=== PATIENT | female | born 1950 | race Caucasian/White ===

== ENCOUNTER 2019-12-02 13:39 | Emergency (ER) | payer MEDICARE, OTHER ==
[~2019-12-02] VITALS: Ht 167.6 cm; Wt 65.8 kg
[~2019-12-02 13:39] MED LIST: HUMALOG PE100 UNIT/M; LANTUSSOLASTAR; LISINOPRIL-HCT1 EACH; SYNTHROID125 MC1 PO
[2019-12-02] MEDS ORDERED: LEVEMIR FL100 UNIT/2 SUBQ (13:56)
[2019-12-02] MEDS ORDERED: LIPITOR10 MG PO (13:56)
[2019-12-02] MEDS ORDERED: GABAPENTIN100 MG PO (13:57)
[2019-12-02] MEDS ORDERED: PRINIVIL10 MG PO (13:57)
[2019-12-02 14:11] LABS: HEMATOCRIT 38.8 % (37.0-47.0); HEMOGLOBIN 13.4 gm/dL (12.0-15.0); MCH 31.2 pg (26.0-34.0); MCHC 34.5 g/dL (28.0-37.0); MCV 90.4 fL (80.0-100.0); MPV 8.5 fl. (7.2-11.1); RBC 4.29 mil/uL (4.20-5.00); RDW-CV 13.2 % (10.5-14.5); WBC 11.3 thou/uL (4.0-11.0)
[2019-12-02 14:19] LABS: CALCIUM 9.1 mg/dL (8.5-10.1); CREATININE 1.4 mg/dL (0.6-1.3)
[2019-12-02 14:22] LABS: POTASSIUM 2.8 mmol/L (3.5-5.1)
[2019-12-02 14:24] LABS: ALBUMIN 4.1 g/dL (3.4-5.0); TOTAL PROTEIN 7.1 g/dL (6.4-8.2)
[2019-12-02 14:47] VITALS: BP 125/56
--- NOTE | 2019-12-02 15:27 | EKG ---
[place] [address] ELECTROCARDIOGRAM REPORT Name: LUIS GOINSNY Abdullahi Room: [facility]#: [id number] Admission: 12/02/19 Attend Phys: Discharge: Date of : 50 Report #: [id number] THIS REPORT FOR: //name// [facility] ED Test Date: 2019-12-02 Test Time: 13:46:04 Pat Name: АНДРЕЙ GOINS Department: Room: Gender: F Fresh Work Inspector: JANA : 1950 Requested By: Satish Khoury Order Number: [id number] MD: Andres Kent Measurements Intervals [place] Rate: 89 P: 56 MI: 152 QRS: -12 QRSD: 79 T: 128 QT: 336 QTc: 409 Interpretive Statements Sinus rhythm poor r wave progression Probable left atrial enlargement Borderline repolarization abnormality Compared to ECG 12/26/2013 18:24:38 st depression noted Electronically Signed On 12-02-2019 15:26:41 HI LO DRIVER by Andres Kent [email or web address] <ELECTRONICALLY SIGNED> By: Andres Kent MD, [facility] 12/02/19 1526 1346 1346 Andres Kent MD, FACC /EPI
== END 2019-12-02 14:47 ==
LOC: M.ERS 13:39
PROVIDERS: Emergency Medicine
DX: E11.65 Type 2 diabetes mellitus with hyperglycemia (principal); E78.5 Hyperlipidemia, unspecified; Z88.0 Allergy status to penicillin; Z88.2 Allergy status to sulfonamides

== ENCOUNTER 2019-12-03 16:00 | Inpatient (IN) | payer MEDICARE, OTHER ==
[2019-12-03] VITALS (8 sets, daily range): BP systolic 73–111; BP diastolic 33–45
[~2019-12-03] VITALS: Ht 167.6 cm; Wt 67.6 kg
[~2019-12-03 16:00] MED LIST changes: +GABAPENTIN100 MG PO; +LEVEMIR FL100 UNIT/2 SUBQ; +LIPITOR10 MG PO; +PRINIVIL10 MG PO
[2019-12-03 16:27] LABS: HEMATOCRIT 42.9 % (37.0-47.0); HEMOGLOBIN 13.2 gm/dL (12.0-15.0); MCH 30.6 pg (26.0-34.0); MCHC 30.8 g/dL (28.0-37.0); MPV 8.8 fl. (7.2-11.1); NUCLEATED RBCS 0 /100WBC; PLATELET COUNT* 285 thou/uL (150-400); RBC 4.32 mil/uL (4.20-5.00); RDW-CV 14.4 % (10.5-14.5); WBC 18.2 thou/uL (4.0-11.0)
[2019-12-03 16:29] LABS: MCV 99.2 fL (80.0-100.0)
[2019-12-03 16:48] LABS: CALCIUM 9.7 mg/dL (8.5-10.1); CREATININE 1.7 mg/dL (0.6-1.3); POTASSIUM 5.6 mmol/L (3.5-5.1)
[2019-12-03 16:51] LABS: BE -20.1 mmol/L (-2 to +3); PO2 110.9 mmHg (75.0-100.0)
[2019-12-03 16:52] LABS: MAGNESIUM 1.8 mg/dL (1.8-2.4); TOTAL BILIRUBIN 1.1 mg/dL (<0.1-1.0); TOTAL PROTEIN 7.2 g/dL (6.4-8.2)
[2019-12-03 16:53] LABS: pH 7.172 (7.340-7.450)
[2019-12-03 16:54] LABS: PCO2 17.4 mmHg (35.0-45.0)
[2019-12-03 17:21] LABS: ABSOLUTE BASOPHILS 0.2 thou/uL (0.0-0.2); ABSOLUTE LYMPHOCYTES 1.5 thou/uL (0.8-5.3); ABSOLUTE MONOCYTES 1.1 thou/uL (0.0-1.2); ABSOLUTE NEUTROPHILS 15.5 thou/uL (1.6-8.1); PLATELET ESTIMATE ADEQUATE
[2019-12-03 19:49] LABS: CALCIUM 8.8 mg/dL (8.5-10.1); CREATININE 1.6 mg/dL (0.6-1.3); POTASSIUM 4.7 mmol/L (3.5-5.1)
[2019-12-03 20:55] LABS: URINE BILIRUBIN NEGATIVE (Negative); URINE BLOOD NEGATIVE (Negative); URINE CLARITY CLEAR; URINE COLOR YELLOW; URINE GLUCOSE-RANDOM 2+ (Negative); URINE LEUKOCYTES-REFLEX NEGATIVE (Negative); URINE NITRITE-REFLEX NEGATIVE (Negative); URINE PROTEIN NEGATIVE (Negative); URINE SPECIFIC GRAVITY 1.025 (1.005-1.030); URINE UROBILINOGEN 0.2 E.U./dl (0.2-1.0)
[2019-12-03 20:56] LABS: URINE KETONES 3+ (Negative)
[2019-12-03 22:53] LABS: CALCIUM 8.1 mg/dL (8.5-10.1); CREATININE 1.4 mg/dL (0.6-1.3); MAGNESIUM 1.4 mg/dL (1.8-2.4); PHOSPHORUS* 2.8 mg/dL (2.5-4.9); POTASSIUM 3.9 mmol/L (3.5-5.1)
[2019-12-04] VITALS (45 sets, daily range): BP systolic 77–123; BP diastolic 30–62
[2019-12-04 02:52] LABS: ABSOLUTE BASOPHILS 0.1 thou/uL (0.0-0.2); ABSOLUTE MONOCYTES 1.4 thou/uL (0.0-1.2); ABSOLUTE NEUTROPHILS 9.4 thou/uL (1.6-8.1); EOSINOPHILS 0.1 %; HEMATOCRIT 35.4 % (37.0-47.0); LYMPHOCYTES 21.8 %; MCH 30.6 pg (26.0-34.0); MONOCYTES 9.7 %; MPV 8.5 fl. (7.2-11.1); NUCLEATED RBCS 0 /100WBC; PLATELET COUNT* 246 thou/uL (150-400); POLYS 67.4 %; RBC 3.92 mil/uL (4.20-5.00); RDW-CV 13.3 % (10.5-14.5); WBC 13.9 thou/uL (4.0-11.0)
[2019-12-04 02:59] LABS: MCV 90.2 fL (80.0-100.0)
[2019-12-04 03:03] LABS: CREATININE 1.3 mg/dL (0.6-1.3); MAGNESIUM 1.3 mg/dL (1.8-2.4); POTASSIUM 3.9 mmol/L (3.5-5.1)
[2019-12-04 07:03] LABS: ALBUMIN 3.2 g/dL (3.4-5.0); CREATININE 1.2 mg/dL (0.6-1.3); MAGNESIUM 1.2 mg/dL (1.8-2.4); PHOSPHORUS* 2.4 mg/dL (2.5-4.9); POTASSIUM 3.8 mmol/L (3.5-5.1)
--- NOTE | 2019-12-04 07:32 | NUR ---
PATIENT ON UNIT AT 2300 FROM ED. FLUIDS INFUSING PER DKA PROTOCOL AT 150/HR. OF 614 LAB DRAW, PATIENT'S GAP IS CLOSED. INSULIN TITRATED DOWN TO 2 UNITS/HR. PATIENT HAD BEEN LETHARGIC AND DISORIENTED FOR THE MAJORITY OF THE SHIFT. AROUND 0430, THE PATIENT BECAME ALERT AND MORE ORIENTED. PATIENT WAS INFORMED OF THE EVENTS THAT BROUGHT HER TO THE HOSPITAL AND SHE INFORMED THIS NURSE THAT SHE HAD NOT BEEN TAKING HER LEVOMIR DUE TO FINANCIAL STRAINS.
--- NOTE | 2019-12-04 09:18 | EKG ---
[place] [address] ELECTROCARDIOGRAM REPORT Name: BRISEIDAАНДРЕЙ Abdullahi Room: [address] ADM IN .R.#: [id number] Admission: 12/03/19 Attend Phys: Alvin Pritchard MD Discharge: Date of : 50 Report #: [id number] THIS REPORT FOR: //name// [facility] ED Test Date: 2019-12-03 Test Time: 16:21:47 Pat Name: АНДРЕЙ GOINS Department: Room: [facility] Gender: F Field Hauler: : 1950 Requested By: Satish Khoury Order Number: [id number] MD: Andres Kent Measurements Intervals [place] Rate: 93 P: 66 FL: 154 QRS: -11 QRSD: 91 T: 68 QT: 362 QTc: 451 Interpretive Statements Sinus rhythm Minimal ST depression, lateral leads Compared to ECG 12/02/2019 13:46:04 Poor R-wave progression no longer present Electronically Signed On 12-04-2019 9:17:53 CHEMICAL WEIGHER by Andres Kent [email or web address] <ELECTRONICALLY SIGNED> By: Andres Kent MD, [facility] 12/04/19 0917 1621 1621 Andres Kent MD, [facility] /EPI
--- NOTE | 2019-12-04 09:44 | NUR ---
PT A/OX4, DISCUSSED INSULIN NEEDS WITH KIRTI, EDUCATED PT ON DIFFERENCES OF FCI AND SHORT TERM INSULIN, PT NEEDS FURTHER EDUCATION ON DIFFERENCES AND IMPORTANCE OF NOT SUBSTITUTING HUMALOG FOR LEVEMIR, AND NOT TITRATING LEVEMIR DEPENDING ON BLOOD SUGAR READING. PT REPORTED NOT BEING ABLE TO AFFORD LEVEMIR WHICH WAS COSTING $430.00/MONTH, PT REPORTS GETTING NEW INSURANCE DEC 13, AND INSULIN COST WILL BE MANAGEABLE. DISCUSSED INSULIN NEEDS AND LACK OF INSULIN KNOWLEDGE WITH DAUGHTER FEBRUARY. CASE MANAGEMENT REFFERAL PLACED.
--- NOTE | 2019-12-04 11:00 | NUR ---
INT ROUNDS: MET WITH PT, ADMITTED WITH DKA. PT HAD FRIEND IN ROOM WHO IS ALSO HER BOSS, OK'D THAT CM DISCUSS IN FRONT OF HIM. PT LIVES ALONE, HAS CHILDREN BUT THEY LIVE OUT OF STATE. PT IS INDEPENDENT AND ACTIVE, USES NO EQUIPMENT OTHER THEN DM SUPPLIES. STATES HER DM METER IS 'BROKEN' BUT HER FRIEND HIGINIO HAS TALKED TO PT'S PCP AND NEW ONE IS ORDERED. PT STATES SHE TRIES TO BE COMPLIANT WITH MEALS BUT ONLY USES LEVIMIR INSULIN. STATES HAD TROUBLE AFFORDING IT BUT AFTER 12/13, SHOULD HAVE DEDUCTIBLES AND BE ABLE TO AFFORD IT BETTER. PT SEEMS TO HAVE LIMITED KNOWLEDGE OF HER DM MEDS. OBTAINED ED INFO AND ASKED THAT NURSE GO OVER THE PT. GAVE PT LIST OF DM ED CLASSES AT [facility] AND ENCOURAGED TO CONSIDER WELL ASSIST PROGRAM INFO FOR LEVIMIR. UNSURE IF WILL QUALIFY FOR ASSIST D/T MEDICARE. PT AWARE. PT STATES THAT SHE DOESN'T HAVE DPOA, DISCUSSED AND HAS INFO TO FILL OUT IF DESIRES. PT DID STATE SHE HAS APPT WITH ENDO/DR JC ON 12/17 BUT HAS TO CANCEL AND DID NOT WANT TO DISCUSS. ENCOUARAGED HER TO TRY TO KEEP APPT AND SEE DR D/T THIS HOSPITAL STAY AND DM NEEDS. BOSS IN ROOM AND VERY SUPPORTIVE. STATED HE AND HIS /HIGINIO ARE ASSISTING PT AND THAT HE IS DIABETIC ALSO AND IS 'WORKING WITH HER.' WILL FOLLOW
--- NOTE | 2019-12-04 15:06 | NUR ---
DIABETIC EDUCATION INFORMATION GIVEN TO PT, PT NOT INTERESTED IN REVIEWING INFORMATION AT THIS TIME, ONE TOUCH GLUCOSE METER ALSO GIVEN TO PT, PT APPEARED EXCITIED ABOUT NEW METER.
--- NOTE | 2019-12-04 21:06 | NUR ---
REPORT GIVEN TO J/S NURSE, QUESTIONS DENIED. PT. TO TRANSFER TO ROOM 111 VIA WHEELCHAIR, WILL GATHER ALL PERSONAL BELONGINGS.
--- NOTE | 2019-12-04 21:29 | NUR ---
PT. TRANSFERRED VIA W/C TO 111 AT THIS TIME, ALL PERSONAL BELONGINGS WITH PT.
[2019-12-05 04:11] LABS: ABSOLUTE EOSINOPHILS 0.2 thou/uL (0.0-0.7); ABSOLUTE LYMPHOCYTES 2.8 thou/uL (0.8-5.3); ABSOLUTE MONOCYTES 0.5 thou/uL (0.0-1.2); BASOPHILS 0.5 %; EOSINOPHILS 2.1 %; HEMATOCRIT 32.5 % (37.0-47.0); HEMOGLOBIN 11.2 gm/dL (12.0-15.0); LYMPHOCYTES 29.2 %; MCH 31.1 pg (26.0-34.0); MCHC 34.3 g/dL (28.0-37.0); MCV 90.6 fL (80.0-100.0); MONOCYTES 4.8 %; MPV 8.6 fl. (7.2-11.1); NUCLEATED RBCS 0 /100WBC; POLYS 63.4 %; RBC 3.59 mil/uL (4.20-5.00); RDW-CV 13.4 % (10.5-14.5); WBC 9.5 thou/uL (4.0-11.0)
[2019-12-05 04:30] LABS: ALBUMIN 2.8 g/dL (3.4-5.0); ALKALINE PHOSPHATASE 52 U/L (46-116); ANION GAP 10 mmol/L (7-16); BUN 23 mg/dL (7-18); CHLORIDE 107 mmol/L (98-107); CO2 24 mmol/L (21-32); CREATININE 1.1 mg/dL (0.6-1.3); GLUCOSE 127 mg/dL (70-99); PHOSPHORUS* 2.5 mg/dL (2.5-4.9); PLATELET COUNT* 170 thou/uL (150-400); POTASSIUM 3.7 mmol/L (3.5-5.1); SGOT 31 U/L (15-37); SGPT 34 U/L (30-65); SODIUM 141 mmol/L (136-145); TOTAL BILIRUBIN 0.6 mg/dL (<0.1-1.0); TOTAL PROTEIN 5.3 g/dL (6.4-8.2)
--- NOTE | 2019-12-05 06:17 | NUR ---
Transfer from ICU at 2130. She is alert and oriented x 4 but sometimes is slow to respond. She does need stand by assist to go to the bathroom. Her gait is unsteady. She refused lovenox at bedtime,she did get both lispro and lantus insulin at bedtime for a blood sugar of 167. At 0106 she began feeling weak and shaky, her blood sugar was 36. She was given 2 apple juices and charles crackers and her blood sugar at 0145 was 97. She is alert and oriented and sitting at the bedside washing up.
[2019-12-05 07:03] VITALS: BP 151/83
--- NOTE | 2019-12-05 07:04 | NUR ---
Patient stating she was feeling like her blood sugar was dropping again and blood sugar at 0630 was 208. Vitals were just taken and they are stable. Roomair sat is 97%. She is sitting up in the bed.
[2019-12-05 09:10] VITALS: BP 151/83
[2019-12-05] MEDS ORDERED: HUMALOG100 UNIT/1 SUBQ (09:35)
[2019-12-05] MEDS ORDERED: LEVEMIR FL100 UNIT/2 SUBQ (09:35)
--- NOTE | 2019-12-05 10:33 | NUR ---
DISCHARGE ORDERS RECEIVED.PT STATES SHE IS UNABLE TO AFFORD HER INSULIN UNTIL DEC 13 WHEN THE DEDUCTIBLE GOES DOWN.THERE IS NO MED ASSISTANCE AVAILABLE SINCE PT HAS MEDICARE AND SHE IS NOT ELIGIBLE. SHE STATES SHE WOULD LIKE TO USE OTC INSULIN WHICH IS AT [facility] INSTEAD. DISCUSSED WITH DR POE. ORDERS RECEIVED.WILL CALL IN RX FOR INSULIN,LANCETS,STRIPS AND NEEDLES TO [facility]. RX FOR LEVEMIR AND NOVOLOG SENT WITH PT. PT HAS GLUCOMETER
[2019-12-05] MEDS ORDERED: NOVOLIN R100 UNIT/3 SUBQ (10:49)
[2019-12-05] MEDS ORDERED: NOVOLIN N100 UNIT/3 SUBQ (10:50)
--- NOTE | 2019-12-05 10:52 | NUR ---
SPOKE WITH DR POE RE PT CANNOT HER RX. RX CALLED INTO [facility] FOR NEEDLES,LANCETS,STRIPS AND PT WILL BUY OTC INSULIN. RN AND PT NOTIFIED
[2019-12-05 11:57] LABS: URINE BILIRUBIN NEGATIVE (Negative); URINE BLOOD TRACE (Negative); URINE CLARITY CLEAR; URINE COLOR YELLOW; URINE GLUCOSE-RANDOM 2+ (Negative); URINE KETONES 1+ (Negative); URINE LEUKOCYTES 2+ (Negative); URINE NITRITE NEGATIVE (Negative); URINE PROTEIN NEGATIVE (Negative); URINE SPECIFIC GRAVITY 1.025 (1.005-1.030); URINE UROBILINOGEN 0.2 E.U./dl (0.2-1.0)
[2019-12-05 12:09] VITALS: BP 151/83
[2019-12-05 12:24] LABS: SQUAMOUS >10 Many /LPF (0-3); URINE RBC 3-10 Few /HPF (0-2)
[2019-12-05 12:25] LABS: BACTERIA 1-9 Few /HPF (None Seen); CASTS None Seen /LPF (None Seen); CRYSTALS None Seen /LPF (None Seen); MUCUS None Seen strn/LPF (None Seen)
--- NOTE | 2019-12-05 13:10 | NUR ---
PATIENT PLEASANT AND COOPERATIVE THRU SHIFT. PATIENT RECEPTIVE TO DIABETIC TEACHING, VERBALIZES THIS EPISODE WAS A "WAKE UP CALL". HRLY ROUNDS DONE. PATIENT DRESSES INDEP. BELONINGS GATHERED PER PATIENT. S/O PRESENT AT TIME OF DISCHARGE. BELONINGS W/ PATIENT UPON LEAVING UNIT. ESCORTED TO AWAITING VEHICLE PER PEDIS W/ SLOW, STEADY GAIT. ALERT AND ORIENTED. DENIES OTHER NURSING NEEDS AT TIME OF DISCHARGE. ~TJRN
== END 2019-12-05 13:10 | disposition home or self-care (01) | DRG 637 ==
LOC: M.ERS 16:00 → M.ICU 17:05 → M.TBA-ER 17:05 → M.ICU 20:55 → M.ORTHSURG 12-04 21:28
PROVIDERS: Emergency Medicine; ADMIT Internal Medicine
DX: E11.10 Type 2 diabetes mellitus with ketoacidosis without coma (principal); G93.41 Metabolic encephalopathy; N17.9 Acute kidney failure, unspecified; E78.5 Hyperlipidemia, unspecified; I10 Essential (primary) hypertension; E86.0 Dehydration; Z79.4 Long term (current) use of insulin; Z88.0 Allergy status to penicillin; Z88.2 Allergy status to sulfonamides; Z79.899 Other long term (current) drug therapy; Z90.49 Acquired absence of other specified parts of digestive tract

== ENCOUNTER 2021-09-09 09:20 | Emergency (ER) | payer OTHER, MEDICARE ==
[~2021-09-09] VITALS: Ht 165.1 cm; Wt 77.1 kg
[~2021-09-09 09:20] MED LIST changes: +HUMALOG100 UNIT/1 SUBQ; +NOVOLIN N100 UNIT/3 SUBQ; +NOVOLIN R100 UNIT/3 SUBQ
[2021-09-09] MEDS ORDERED: KLOR-CON 10 ER10 MEQ PO (09:37)
[2021-09-09] MEDS ORDERED: FLEXERIL PO (12:11)
[2021-09-09 12:17] VITALS: BP 163/87
== END 2021-09-09 12:18 | disposition home or self-care (01) ==
LOC: M.ERS 09:20
DX: M25.532 Pain in left wrist (principal); M25.531 Pain in right wrist; M25.551 Pain in right hip; M54.2 Cervicalgia; E78.5 Hyperlipidemia, unspecified; E11.9 Type 2 diabetes mellitus without complications; I10 Essential (primary) hypertension; Z90.49 Acquired absence of other specified parts of digestive tract; Z79.4 Long term (current) use of insulin; Z79.899 Other long term (current) drug therapy; Z88.0 Allergy status to penicillin; Z88.2 Allergy status to sulfonamides; W18.39XA Other fall on same level, initial encounter; Y93.89 Activity, other specified; Y92.89 Other specified places as the place of occurrence of the external cause; Y99.8 Other external cause status